=== PATIENT | male | born 1980 | race Caucasian/White ===

== ENCOUNTER 2020-01-25 15:07 | Inpatient (IN) ==
[2020-01-25] MEDS ORDERED: TORADOL IV ONE (15:29)
[2020-01-25] MEDS ORDERED: NS 1,000 ML IV ONE (15:29)
[2020-01-25] MEDS ORDERED: FLOMAX PO ONE (15:29)
--- NOTE | 2020-01-25 15:32 | PROVIDER DOCUMENTATION ---
HPI-Male Problem - General Chief Complaint: Flank Pain Stated Complaint: KIDNEY STONE Time Seen by Provider: 01/25/20 15:23 Source: patient, family Allergies/Adverse Reactions: Patient Allergies Allergy/AdvReac Type Severity Reaction Status Date / Time No Known Allergies Allergy Verified 01/25/20 15:43 Home Medications: Home Medication List Medication Instructions Recorded Confirmed Last Taken Type NK [No Home Medications] 01/25/20 01/25/20 Unknown History - History of Present Illness-Male Nature of Presenting Problem: 39 YO M pmh for recurrent renal stones presents with c/o left flank pain since last night. Most recent renal stone was 2 months ago. Pt was supposed to f/u with Dr. Armijo, but could not afford it. He is present with his mom. c/o associated dysuria, denies fever. Past History - Adult - PAST MEDICAL HISTORY-ADULT Major Childhood Illnesses: reports: denies history Cardiovascular: reports: denies history Respiratory: reports: denies history Gastrointestinal: reports: denies history Obstetrical/Gynecological: reports: denies history Genitourinary: reports: kidney stones Musculoskeletal: reports: arthritis Neurological: reports: denies history Endocrine/Immune: reports: denies history Other Conditions: reports: denies history - PRIOR SURGERIES/PROCEDURES Surgical/Procedure History: reports: colonoscopy, cholecystectomy - IMMUNIZATION STATUS Childhood Immunizations: See Nurse Assessment Flu Vaccine: See Nurse Assessment - FAMILY HISTORY Family History: reviewed, not pertinent Physical Exam-General - PHYSICAL EXAM-ADULT Initial Vital Signs Reviewed: Yes - CONSTITUTIONAL General Appearance: alert, moderate distress (from pain), obese, other (smells of cigarette smoke) - EYES Eyes: pink conjunctivae - HEAD, EARS, NOSE, MOUTH & THROAT HENMT: moist mucous membranes, other (poor dentition) - NECK Neck: supple - RESPIRATORY Respiratory: lungs clear, normal breath sounds, no pleuratic chest pain, no respiratory distress - CARDIOVASCULAR Cardiovascular: regular rate, rhythm, no edema - GASTROINTESTINAL (ABDOMEN) Abdominal Exam: soft, other (protuberant). negative: hernia, mass - MUSCULOSKELETAL Back Exam: CVA tenderness (left side) Extremity: normal inspection, no pedal edema - SKIN Integumentary: normal color, normal turgor, warm/dry - NEUROLOGIC Neurologic: grossly normal - PSYCHIATRIC Psych/Mental Status: normal mood/affect, oriented x 3 Progress - PLAN OF CARE/RESULTS Progress/Plan/Lab Results: Vital Signs - 8 hr 01/25/20 15:18 Temperature 97.9 F Pulse Rate 94 H Respiratory Rate 19 Blood Pressure 146/105 O2 Sat by Pulse Oximetry 96 Laboratory Results - last 24 hr 01/25/20 01/25/20 01/25/20 15:37 15:37 16:34 WBC 8.99 RBC 5.46 Hgb 17.4 Hct 49.5 MCV 90.7 MCH 31.9 H MCHC 35.2 RDW Std Deviation 13.9 Plt Count 234 MPV 9.7 Neut % (Auto) 61.3 Lymph % (Auto) 23.2 Quay % (Auto) 11.2 H Eos % (Auto) 4.0 Baso % (Auto) 0.3 Neut # (Auto) 5.50 Lymph # (Auto) 2.09 [place]ay # (Auto) 1.01 H Eos # (Auto) 0.36 Baso # (Auto) 0.03 Sodium 134 L Potassium 3.4 L Chloride 98 Carbon Dioxide 26 Anion Gap 10 BUN 12 Creatinine 1.6 H Estimated GFR/1.73 m2 48 BUN/Creatinine Ratio 8 Glucose 100 Calculated Osmolality 268 Calcium 9.2 Total Bilirubin 0.51 AST 16 ALT 24 Alkaline Phosphatase 63 Total Protein 6.5 Albumin 3.7 Globulin 2.8 Albumin/Globulin Ratio 1.3 Urine Source CLEAN CATCH Urine Color YELLOW Urine Turbidity CLEAR Urine pH 6.5 Ur Specific [place] 1.010 Urine Protein NEGATIVE Ur Glucose (Stick) NEGATIVE Ur Ketones (Stick) NEGATIVE Urine Blood SMALL A Urine Nitrite NEGATIVE Urine Bilirubin NEGATIVE Urobilinogen Dipstick NORMAL Urine Leukocytes NEGATIVE Urine WBC (Auto) <10 Urine RBC (Auto) 20-40 A U Epithel Cells (Auto) <10 Urine Bacteria (Auto) NEGATIVE Orders Category Date Time Status Nursing- MD Consult Request ROUTINE Care 01/25/20 17:29 Active MD [Physician/Provider Consults] Routine Cons 01/25/20 17:[address] ABDOMEN/PELVIS W/O CONTRAST [CT] Stat Exams 01/25/20 15:28 Completed CBC WITH ELECTRONIC DIFF [HEME] Stat Lab 01/25/20 15:37 Completed COMPREHENSIVE METABOLIC PANEL [CHEM] Stat Lab 01/25/20 15:37 Completed URINALYSIS W/POSS RFLX CULT [URINALYSIS] Stat Lab 01/25/20 16:34 Completed 0.9% Sodium Chloride Inj [Ns] 1,000 ml Med 02/25/20 15:29 Discontinued IV 999 mls/hr Hydromorphone [Dilaudid] Med 01/25/20 16:36 Discontinued 0.5 mg IV NOW ONE Ketorolac [Toradol] Med 01/25/20 15:29 Discontinued 30 mg IV NOW ONE Ondansetron [Zofran] Med 01/25/20 16:36 Discontinued 4 mg IV NOW ONE Tamsulosin [Flomax] Med 01/25/20 15:29 Discontinued 0.4 mg PO NOW ONE Result Diagrams: 01/25/20 15:37 01/25/20 15:37 - CONSULTS/PCP/HOSPITALIST Notification #1 *Consult/PCP/Hospitalist*: spoke with Tanya Time Discussed: 17:25 Consult Disposition: Will see in ED, Admit #2 Consult: Dr. Cruz Time Discussed: 17:30 Consult Disposition: other (will see in the morning) Departure - Departure Referrals and Follow-Ups: None,PCP [Primary Care Provider] -
[2020-01-25 16:12] LABS: BASO# 0.03 X1000 (0.0-0.2); BASO% 0.3 % (0.0-0.8); EOS# 0.36 X1000 (0.0-0.7); HEMATOCRIT 49.5 % (42.0-52.0); HEMOGLOBIN 17.4 g/dL (14.0-18.0); LYMPH# 2.09 X1000 (1.2-3.4); LYMPH% 23.2 % (20.5-51.1); MCH 31.9 PG (27-31); MCHC 35.2 g/dL (33-37); MCV 90.7 FL (81-99); MONO# 1.01 X1000 (0.11-0.59); MONO% 11.2 % (1.7-9.3); MPV 9.7 FL (7.4-10.4); NEUT% 61.3 % (42.2-75.2); PLT 234 X1000 (130-400); RBC 5.46 XMIL (4.7-6.1); RDW 13.9 % (11.5-14.5); WBC 8.99 X1000 (4.8-10.8)
[2020-01-25 16:19] LABS: ALB/GLOB RATIO 1.3; ALBUMIN 3.7 g/dL (3.5-5.0); CALCIUM 9.2 mg/dL (8.8-10.2); CREATININE 1.6 mg/dL (0.7-1.2); POTASSIUM 3.4 mmol/L (3.5-5.1); TOTAL BILIRUBIN 0.51 mg/dL (0.20-1.00); TOTAL PROTEIN 6.5 g/dL (6.3-8.3)
[2020-01-25] MEDS ORDERED: DILAUDID IV ONE (16:36)
[2020-01-25] MEDS ORDERED: ZOFRAN IV ONE (16:36)
--- NOTE | 2020-01-25 16:36 | Diag Imaging Result Doc PS360 ---
CT ABDOMEN/PELVIS W/O CONTRAST - 01/25/2020 INDICATION: left flank pain COMPARISON: 11/19/2019 FINDINGS: Stable benign nodule in the lateral left costophrenic angle consistent with a small granuloma. No infiltrates. Heart size is normal with no pericardial effusion. Stable cholecystectomy changes. There are a couple small stones in the left kidney measuring up to 3 mm. There is probably a tiny 1 mm stone in the lower pole the right kidney. There is an obstructing stone in the left distal ureter measuring 10 x 6 mm. There is severe left hydroureteronephrosis. Urinary bladder, prostate, and rectum are normal. IMPRESSION: Obstructing left distal ureter stone with severe hydroureteronephrosis. This exam was performed using automated exposure control, adjustment of mA or kV according to patient size, and/or use of iterative reconstruction technique Electronically signed by Edward Weinberg 01/25/2020 4:33 PM
[2020-01-25 16:47] LABS: URINE SOURCE CLEAN CATCH
[2020-01-25 17:10] LABS: BILIRUBIN URINE NEGATIVE (NEGATIVE); BLOOD URINE SMALL (NEGATIVE); COLOR YELLOW; GLUCOSE URINE NEGATIVE (NEGATIVE); KETONE URINE NEGATIVE (NEGATIVE); LEUKOCYTES URINE NEGATIVE (NEGATIVE); NITRITE URINE NEGATIVE (NEGATIVE); PH URINE 6.5; PROTEIN URINE NEGATIVE (NEGATIVE); TURBIDITY URINE CLEAR (CLEAR); UROBILINOGEN URINE NORMAL (NORMAL)
[2020-01-25 17:13] LABS: UR EPITHELIAL CELLS <10 /HPF (<10); URINE BACTERIA NEGATIVE /HPF; URINE RBC 20-40 /HPF (<10); URINE WBC <10 /HPF (<10)
[2020-01-25] MEDS ORDERED: TYLENOL PO PRN (17:31)
[2020-01-25] MEDS: NS 1,000 ML IV SCH (17:31)
[2020-01-25] MEDS ORDERED: ZOFRAN IV PRN (17:31)
[2020-01-25] MEDS ORDERED: DILAUDID IV PRN (17:32)
--- NOTE | 2020-01-25 18:24 | HISTORY AND PHYSICAL ---
PRIMARY CARE PROVIDER: No one. CHIEF COMPLAINT: Left flank pain. HISTORY OF PRESENT ILLNESS: Mr. Latesha Arndt is a 39-year-old male with a medical history of hypertension, kidney stones, gout who is medically noncompliant. [facility], but he does not go there now. He has complaints of left flank pain that started around Friday. It is intermittent, but just would not get any better. He did not notice any changes in his urine. He had no fever or chills. He states that around 2 months ago he was diagnosed with a 7 mm stone and was supposed to go to Dr. Armijo as follow-up but it was said that he would have to pay 300 dollars to be seen and he could not afford it, so he never followed up. Now he is here and the stone is around 10 mm and with mild kidney dysfunction with it, so we will go ahead and admit him and consult Urology. PAST MEDICAL HISTORY: 1. Hypertension. 2. Gout. 3. Kidney stones. SURGICAL HISTORY: Cholecystectomy. SOCIAL HISTORY: Half pack per day smoker since the age of 18. Denies alcohol or states he only drinks maybe once a year. Smokes marijuana every other day. He does not work. He is not . He has no kids. FAMILY HISTORY: Mother has osteoporosis and kidney stones. Father had heart disease, diabetes, gout, and chronic kidney disease. ALLERGIES: No known drug allergies. HOME MEDICATIONS: None. REVIEW OF SYSTEMS: Fourteen point review of systems are complete and all were negative except for those mentioned above in HPI. PHYSICAL EXAMINATION: VITAL SIGNS: Temperature 97.9 degrees, heart rate 94, respiratory rate 19, blood pressure 146/105, O2 saturation 96% on room air. GENERAL: Mr. Latesha Arndt is a 39-year-old male who is very unkept, who does not appear to be brushing his teeth or performing good oral hygiene. He is in no acute distress. He is able answer questions appropriately. HEENT: Atraumatic, normocephalic. Pupils equal, round, reactive to light. Extraocular movements intact. Mucous membranes are dry and again poor oral hygiene. NECK: Trachea midline. CARDIOVASCULAR: S1, S2. Regular rate and rhythm. No rubs, gallops, murmurs. No lower extremity edema. +2 dorsalis and radial pulses. Negative JVD or carotid bruits. PULMONARY: Clear to auscultation. Bilateral breath sounds. No accessory muscle use or work of breathing noted. GI: Soft, nontender, nondistended. Positive bowel sounds x4. Some left flank pain or costovertebral angle tenderness. EXTREMITIES: Moves all extremities equally. Full range of motion. NEUROLOGIC: A and O x3. Follows commands. Sensory is intact. SKIN: Warm, dry, intact. LABORATORY DATA: White blood cells 8000, hemoglobin 17, hematocrit 49, platelet count 234,000. Sodium 134, potassium 3.4, BUN 12, creatinine is 1.6, glucose 100, calcium is 9.2, bilirubin 0.51. AST 16, ALT 24. Albumin is 3.7. Urinalysis, small blood, 20 to 40 red blood cells otherwise negative. IMAGING: Abdominal pelvic CT obstructing left distal ureteral stone with severe hydroureteronephrosis. ASSESSMENT AND PLAN: 1. Obstructing left distal ureteral stone with severe hydroureteronephrosis. The size is 10 x 6 mm. He also has a couple small stones in the left kidney measuring up to around 3 mm. We will consult Urology, Dr. Cruz, start him on IV fluids and Flomax. For pain control, we will do Dilaudid. Antiemetics will be Zofran. He can also have [place]. 2. Mild acute kidney injury likely secondary to obstructive stones, again, IV fluid hydration. 3. Hypertension. He is stable at the moment. We can add antihypertensives; however, he is going to be noncompliant once he leaves here. We will just monitor it for now. 4. Deep venous thrombosis prophylaxis. Sequential compression devices. 5. Tobacco abuse cessation discussed. Dictated by LILLIANA Carroll for Adam Morocho MD cc: LILLIANA Carroll MD I agree with most components of history, physical, assessment and plan. A separate addendum has been dictated. [facility]
--- NOTE | 2020-01-25 19:42 | HISTORY AND PHYSICAL ---
I agree with most components of history, physical assessment and plan. In brief, Mr. Arndt is a 39 years old man with past medical history of nephrolithiasis, active tobacco abuse, who comes in with a 48 hours duration history of left-sided flank pain. In the emergency room, he was found to have a left-sided distal ureteric stone with left hydronephrosis. He was started on intravenous fluids and hospitalist team was consulted for further management. SUBJECTIVE: At the time of my evaluation, Mr. Arndt is feeling slightly better though he still has left-sided flank pain. VITALS: Temperature 97.9 degrees, pulse 94, respiratory rate 19, blood pressure 146/105. He is saturating 96% on room air. PHYSICAL EXAMINATION: He has a poor dental hygiene. Oral cavity is moist. Air entry bilaterally equal. No wheeze or crackles. CARDIOVASCULAR: S1, S2 normal. No murmur or gallop. ABDOMEN: Soft. There is left-sided tenderness in left lower quadrant and left costovertebral angle tenderness. There is guarding on the left side of the abdomen on deep palpation. EXTREMITIES: He does not have any lower extremity edema. NEUROLOGICAL: He is alert oriented x3. His dorsalis pedis and posterior tibial pulses as well as radial pulses are bilaterally 2+ and equal and adequate. He has good capillary refill time of less than 2 seconds. SKIN: He also had normal skin turgor which appears pink. LABS: Suggestive of WBC of 8000, hemoglobin 17.4, platelets 235,000, potassium 3.4. He also has acute kidney injury with creatinine of 1.6. Microbiology no new data. ASSESSMENT AND PLAN: 1. Acute obstructive nephropathy. 2. Left distal ureteric stone with left hydronephrosis. 3. Acute kidney injury. 4. Active tobacco abuse. PLAN: Continue intravenous fluids. He does not have any fevers, chills, nausea, vomiting to suggest sepsis and his urinalysis did not have pyuria. I will consult Urology for further intervention. Plan of care discussed with the patient and his mother. Their questions have been answered. cc: Adam Morocho MD
[2020-01-25] MEDS ORDERED: NICODERM PATCH TD ONE (20:25)
[2020-01-25] MEDS: NORCO-7.5 PO PRN (22:24)
[2020-01-26] MEDS: NORCO-7.5 PO PRN (03:43)
[2020-01-26] MEDS ORDERED: FLU VACCINE IM ONE (04:16)
[2020-01-26] MEDS: NS 1,000 ML IV SCH (04:43)
[2020-01-26 06:48] VITALS: BP 159/96
[2020-01-26 07:44] LABS: BASO# 0.03 X1000 (0.0-0.2); BASO% 0.3 % (0.0-0.8); EOS% 4.3 % (0.0-10.0); HEMOGLOBIN 17.3 g/dL (14.0-18.0); IMM GRAN# 0.03 X1000 (0.0-0.04); IMM GRAN% 0.3 % (0.0-0.5); LYMPH# 2.79 X1000 (1.2-3.4); LYMPH% 30.2 % (20.5-51.1); MCH 31.3 PG (27-31); MCHC 33.9 g/dL (33-37); MCV 92.2 FL (81-99); MONO# 1.07 X1000 (0.11-0.59); MONO% 11.6 % (1.7-9.3); MPV 9.6 FL (7.4-10.4); NEUT# 4.92 X1000 (1.4-6.5); NEUT% 53.3 % (42.2-75.2); PLT 249 X1000 (130-400); RBC 5.53 XMIL (4.7-6.1); RDW 13.5 % (11.5-14.5); WBC 9.24 X1000 (4.8-10.8)
[2020-01-26 08:10] LABS: AGAP 11; ALB/GLOB RATIO 1.5; ALBUMIN 3.6 g/dL (3.5-5.0); ALKALINE PHOSPHATASE 75 U/L (32-122); BUN 10 mg/dL (8-22); CALCIUM 8.3 mg/dL (8.8-10.2); CHLORIDE 99 mmol/L (98-107); COSMO 275; CREATININE 1.3 mg/dL (0.7-1.2); ESTIMATED GFR > 60; GLUCOSE 95 mg/dL (70-104); GOT 34 U/L (10-34); GPT 41 U/L (10-44); MAGNESIUM 1.7 mg/dL (1.5-2.7); POTASSIUM 3.8 mmol/L (3.5-5.1); SODIUM 138 mmol/L (136-145); TCO2 28 mmol/L (25-35); TOTAL BILIRUBIN 0.84 mg/dL (0.20-1.00)
--- NOTE | 2020-01-26 08:38 | CONSULTATION ---
DATE OF CONSULTATION: 01/26/2020 CHIEF COMPLAINT: Left ureteral stone and flank pain. HISTORY OF PRESENT ILLNESS: Mr. Arndt is a 39-year-old male with a past medical history of hypertension, nephrolithiasis and gout, who presents in consultation regarding left ureteral stone. The patient has a long history of ureteral stones with multiple CT scans that have shown stones present within the distal left ureter going back as far 7 years ago. The patient states that he often passed the stones spontaneously. He states that he began having pain over the weekend and presented to the emergency room yesterday for evaluation. A CT scan was performed which showed a 6 x 10 mm stone present in the distal ureter right above the ureterovesical junction. He had been scheduled to be seen by Dr. Armijo in the office; however, patient states that he could not come into the office. The patient has missed several appointments in the office related to his stone in the past. He says he has not had surgery previously for stones and has been able to pass them spontaneously. He denies any dysuria, hematuria, nausea, vomiting, or flank pain this morning. He states he has not passed the stone. Denies fevers, chills, or suprapubic pain. PAST MEDICAL HISTORY: 1. Hypertension. 2. Gout. 3. Kidney stones. PAST SURGICAL HISTORY: Cholecystectomy. ALLERGIES: No known drug allergies. HOME MEDICATIONS: None. SOCIAL HISTORY: The patient smokes half pack of cigarettes a day. Denies any alcohol use. Does smoke marijuana every other day. The patient is unemployed. FAMILY HISTORY: Denies family history of malignancy. Mother has a history of kidney stones. REVIEW OF SYSTEMS: A 12-point review of systems performed with all pertinent positives and negatives in the HPI. PHYSICAL EXAMINATION: Vital signs: Temperature 97.5 degrees, heart rate 68, blood pressure 159/96, oxygen saturation 99% on room air. General: No acute distress. Resting comfortably in bed. Alert and oriented x3. Respiratory: Good respiratory effort without audible wheezing or rales. HEENT: Normocephalic, atraumatic. Pupils equal, round, reactive to light. Neck: Trachea midline. Cardiovascular: Regular rate and rhythm. Abdomen: Soft, nontender, nondistended. No palpable masses or hepatosplenomegaly. Genitourinary: No suprapubic tenderness. No CVA tenderness. Normal phallus. Bilateral testicles palpated without asymmetry with orthotopic meatus. Musculoskeletal: Moving all extremities. Skin: No obvious skin lesions or rashes. Neurologic: Gross motor and sensory intake. LABORATORY DATA: White blood cell count 8.9, hemoglobin 17.4, hematocrit 49.5, platelets 234,000. Sodium 134, potassium 3.4, chloride 98, bicarb 26, BUN 12, creatinine 1.6, glucose 100. AST 16, ALT 24, alkaline phosphatase 63. Urinalysis shows a small amount of blood with 20 to 40 RBCs per high-powered field, negative leukocytes. IMAGING: CT of the abdomen and pelvis images reviewed, which showed a distal left ureteral stone with associated hydronephrosis. The patient has significant hydronephrosis that appears to be stable in appearance, has chronic-appearing ureteral obstruction, compared to imaging over the past 7 years, the patient has had multiple stones seen within the distal left ureter. A small stone is seen within the kidney itself on the left side. ASSESSMENT AND PLAN: Mr. Arndt is a 39-year-old who presents in evaluation of left flank pain and left ureteral stone. He has a long history of nephrolithiasis as well as gout and hypertension. The patient denies any prior surgeries for kidney stones. In talking with him, I recommended either medical expulsive therapy versus surgical intervention. Discussed treatment options with him at length including the risks of the procedure including bleeding, infection, damage to the ureter, inability to perform the procedure, and need to place a stent for dilation as well as protection of the ureter afterwards. Discussed the role of stent and that can lead to urgency, frequency as well as hematuria and burning. After thorough discussion, the patient would like to proceed. The patient likely would perform this procedure tomorrow. The patient can have a diet this morning. Encouraged him to remain hydrated to see if he is able to pass the stone spontaneously. Pain seems to be well controlled today. If patient's pain remains well controlled and he is able to pass the stone, the patient can be discharged home. We will continue to monitor from a urologic standpoint, if unable to pass the stone spontaneously would recommend surgical intervention. Has long standing hydronephrosis and obstruction, likely will need nuclear medicine scan to assess for residual function, due to degree of obstruction. Please call with questions or concerns. cc: MD MARCO ANTONIO Rush
[2020-01-26] MEDS ORDERED: FLOMAX PO SCH (09:00)
[2020-01-26] MEDS ORDERED: NICODERM PATCH TD SCH (09:00)
--- NOTE | 2020-01-27 03:26 | DISCHARGE SUMMARY ---
ADMISSION DATE: 01/25/2020 DISCHARGE DATE: 01/26/2020 DISCHARGE DISPOSITION: Home. Patient left against medical advice. DISCHARGE CONDITION: I was not able to evaluate the patient today, he left before my clinic encounter. DISCHARGE DIAGNOSES: 1. Acute obstructive nephropathy. 2. Left distal ureteric stone with left hydronephrosis. 3. Acute kidney injury. 4. Active tobacco abuse. OTHER DIAGNOSIS: Prior history of recurrent kidney stones passed spontaneously. DISCHARGE MEDICATION: The patient did not wait for my clinical encounter to write him any prescriptions. Inside the hospital, he was receiving intravenous fluid resuscitation, intravenous hydromorphone as needed. PHYSICAL EXAMINATION: Vital signs: At the time of discharge, temperature 97.5 degrees, pulse 60, respiratory 14, blood pressure 115/96, saturating 99% on room air. I could not perform physical examination. LABS: At the time of discharge WBC 9.2, hemoglobin 17.3, platelet 249,000. His creatinine was 1.6 on presentation, which improved to 1.3 the next day. His hypokalemia improved from 3.4 to 3.8. Urinalysis did not have pyuria. No microbiology. IMAGING: During hospital admission, abdomen and pelvis CT had suggested obstructing left distal ureteral stone with severe left hydronephrosis. CONSULTATION DURING ADMISSION: Dr. Cruz from Urology. HOSPITAL COURSE SUMMARY: Mr. Arndt is a [id number] man who presented on 01/25/2020 with chief complaints of 48 hours duration of left-sided flank pain. He also had prior history of active tobacco abuse. In the emergency room, he was found to have left-sided distal ureteric stone with left hydronephrosis. His vitals were unremarkable, except mild tachycardia of 94. He was started on intravenous fluid resuscitation and intravenous hydromorphone as needed and was monitored inside the hospital. Urology was consulted. The next day, Urology evaluated the patient and their plan was to watch him for 24 hours to see if he was able to pass the stone spontaneously, though patient himself was feeling significantly better, according to Urology documentation. However, since the patient was feeling better, he had decided to go against medical advice before I could perform my clinical encounter. I had conveyed to the nurse of the patient that I would have preferred him staying in the hospital so that I could monitor his course, monitor his kidney function and he was informed about this. However, he decided to go against medical advice. TIME SPENT: 15 minutes were spent in discharging this patient thank you. cc: MD MARCO ANTONIO Castro
== END 2020-01-26 07:53 | disposition left against medical advice (07) | DRG 694 ==
LOC: ED 15:07 → 4N 19:46
PROVIDERS: ATTEND Internal Medicine